=== PATIENT | male | born 1940 | race Caucasian/White ===

== ENCOUNTER 2018-09-11 12:16 | Inpatient (IN) | payer MEDICARE ==
[~2018-09-11] VITALS: Ht 177.8 cm; Wt 74.0 kg
[2018-09-11] MEDS ORDERED: OMEP-110 PO (12:31)
[2018-09-11] MEDS ORDERED: SENN1TAB67 PO (12:31)
[2018-09-11] MEDS ORDERED: ASPIRIN 81 MG TABLET CHEW ONE (12:41)
[2018-09-11 12:49] LABS: BASOPHILS # (AUTO) 0.06 x10^3/uL (0-0.1); BASOPHILS % (AUTO) 1 % (0-1); EOSINOPHILS % (AUTO) 1 % (1-7); LYMPHOCYTES # (AUTO) 1.15 x10^3/uL (1-3.4); LYMPHOCYTES % (AUTO) 13 % (22-44); MD NO; MEAN CORPUSCULAR HEMOGLOBIN 34.7 pg (27.5-34.5); MEAN CORPUSCULAR HGB CONC 34.2 g/dL (33.2-36.2); MEAN CORPUSCULAR VOLUME 101.7 fL (81-97); MEAN PLATELET VOLUME 7.1 fL (7.4-10.4); MONOCYTES # (AUTO) 0.81 x10^3/uL (0.2-0.8); MONOCYTES % (AUTO) 9 % (2-9); NEUTROPHILS # (AUTO) 6.61 x10^3/uL (1.8-6.8); NEUTROPHILS % (AUTO) 76 % (42-75); PLATELET COUNT 239 x10^3/uL (130-400); RED BLOOD COUNT 4.42 x10^6/uL (4.38-5.82); RED CELL DISTRIBUTION WIDTH 13.3 % (9.4-14.8)
[2018-09-11 13:00] LABS: ANION GAP 5 mmol/L (5-15); CALCIUM 8.6 mg/dL (8.5-10.1); CHLORIDE 111 mmol/L (98-107); CREATININE 1.07 mg/dL (0.7-1.3)
[2018-09-11] MEDS ORDERED: ASPIRIN 81 MG TABLET CHEW PO ONE (13:00)
[2018-09-11 13:01] LABS: ALBUMIN 3.2 g/dL (3.4-5.0)
[2018-09-11 13:04] LABS: TROPONIN I < 0.015 ng/mL (0.000-0.045)
[2018-09-11] MEDS ORDERED: NITROGLYCERIN OINT 2%, 1GM TP ONE ×2 (13:30→13:40)
[2018-09-11] MEDS ORDERED: FUROSEMIDE 40 MG/4 ML IV ONE (13:30)
[2018-09-11] MEDS ORDERED: FUROSEMIDE 40 MG/4 ML ONE (13:40)
[2018-09-11] MEDS ORDERED: CEFTRIAXONE 1,000 MG in SODIUM CHLORIDE 0.9% 50 ML IV SCH (15:00)
[2018-09-11] MEDS ORDERED: LABETALOL 5MG/ML, 20ML IVPush PRN (15:00)
[2018-09-11] MEDS ORDERED: methylPREDNISolone SOD SUCC 125 MG/2 ML IVPush SCH (15:00)
[2018-09-11] MEDS ORDERED: hydrALAzine 20 MG/ML, 1ML IVPush PRN (15:00)
[2018-09-11] MEDS ORDERED: ONDANSETRON 2MG/ML, 2ML IVPush PRN (15:00)
[2018-09-11] MEDS ORDERED: HEPARIN 25,000 UNITS/500ML PMX 500 ML IV PRN (15:30)
[2018-09-11] MEDS ORDERED: HEPARIN 5,000 UNITS/ML, 1ML IV ONE (15:30)
[2018-09-11] MEDS ORDERED: HEPARIN 5,000 UNITS/ML, 1ML IV PRN (15:30)
[2018-09-11] MEDS ORDERED: HEPARIN 5,000 UNITS/ML, 1ML ONE (15:41)
[2018-09-11] MEDS ORDERED: HEPARIN 25,000 UNITS/500ML PMX 500 ML ONE (15:42)
[2018-09-11] MEDS ORDERED: ALBUTEROL SULFATE 2.5 MG/3 ML ONE (15:44)
[2018-09-11 15:46] LABS: TROPONIN I < 0.015 ng/mL (0.000-0.045)
[2018-09-11 16:10] LABS: MICROSCOPIC NOT IND
[2018-09-11] MEDS: DOXYCYCLINE 100MG TABLET PO SCH ×2 (16:19→21:48)
[2018-09-11 16:30] VITALS: BP 160/81
[2018-09-11] MEDS ORDERED: CEFTRIAXONE PMX 1GM/50ML 50 ML IV SCH (17:00)
[2018-09-11] MEDS: FUROSEMIDE 20 MG/2 ML IV SCH (17:19)
[2018-09-11] MEDS: methylPREDNISolone SOD SUCC 125 MG/2 ML IVPush SCH (17:20)
[2018-09-11] MEDS ORDERED: GUAI-103 PO (17:25)
[2018-09-11] MEDS ORDERED: NyQuil PO (17:25)
[2018-09-11] MEDS ORDERED: [UNRECOGNIZED DRUG - CODE] PO (17:25)
[2018-09-11 20:25] VITALS: BP 144/74
[2018-09-11 20:43] LABS: TROPONIN I < 0.015 ng/mL (0.000-0.045)
[2018-09-11] MEDS ORDERED: SENNA/DOCUSATE TABLET PO SCH (21:00)
[2018-09-11] MEDS ORDERED: ACETAMINOPHEN 325 MG TABLET ONE (22:09)
[2018-09-11] MEDS: ACETAMINOPHEN 325 MG TABLET PO PRN (22:15)
[2018-09-12] MEDS: methylPREDNISolone SOD SUCC 125 MG/2 ML IVPush SCH ×2 (01:50→09:08)
[2018-09-12] MEDS: ACETAMINOPHEN 325 MG TABLET PO PRN (02:14)
[2018-09-12 02:15] VITALS: BP 117/77
[2018-09-12 05:09] LABS: BASOPHILS # (AUTO) 0.03 x10^3/uL (0-0.1); BASOPHILS % (AUTO) 0 % (0-1); EOSINOPHILS % (AUTO) 0 % (1-7); LYMPHOCYTES # (AUTO) 0.65 x10^3/uL (1-3.4); LYMPHOCYTES % (AUTO) 8 % (22-44); MD NO; MEAN CORPUSCULAR HEMOGLOBIN 34.6 pg (27.5-34.5); MEAN CORPUSCULAR HGB CONC 34.5 g/dL (33.2-36.2); MEAN CORPUSCULAR VOLUME 100.4 fL (81-97); MEAN PLATELET VOLUME 7.3 fL (7.4-10.4); MONOCYTES # (AUTO) 0.13 x10^3/uL (0.2-0.8); MONOCYTES % (AUTO) 2 % (2-9); NEUTROPHILS # (AUTO) 7.84 x10^3/uL (1.8-6.8); NEUTROPHILS % (AUTO) 91 % (42-75); PLATELET COUNT 259 x10^3/uL (130-400); RED BLOOD COUNT 4.55 x10^6/uL (4.38-5.82); RED CELL DISTRIBUTION WIDTH 13.1 % (9.4-14.8)
[2018-09-12 05:19] LABS: ANION GAP 9 mmol/L (5-15); CALCIUM 8.7 mg/dL (8.5-10.1); CHLORIDE 105 mmol/L (98-107); CREATININE 1.13 mg/dL (0.7-1.3)
[2018-09-12] MEDS: FUROSEMIDE 20 MG/2 ML IV SCH (05:49)
[2018-09-12 06:42] VITALS: BP 128/84
[2018-09-12] MEDS ORDERED: OMEPRAZOLE 20 MG CAPSULE.DR PO SCH (09:00)
[2018-09-12] MEDS ORDERED: FLUTICASONE/VILANTEROL 200-25MCG/INH INH SCH (09:00)
[2018-09-12] MEDS: DOXYCYCLINE 100MG TABLET PO SCH (09:08)
[2018-09-12] MEDS ORDERED: DOXY100T PO (14:08)
[2018-09-12] MEDS ORDERED: FLUT1BLS INH (14:12)
[2018-09-12] MEDS ORDERED: GUAI600T31 PO (14:12)
[2018-09-12] MEDS ORDERED: RIVA20TA PO (14:12)
[2018-09-12] MEDS ORDERED: RIVA15TA PO (14:12)
[2018-09-12] MEDS ORDERED: CEFD300C37 PO (14:12)
[2018-09-12 14:28] VITALS: BP 103/64
[2018-09-12] MEDS ORDERED: RIVAROXABAN 15 MG TABLET PO SCH ×3 (14:46→17:00)
== END 2018-09-12 16:34 | disposition home or self-care (01) | DRG 291 ==
LOC: ED 13:50 → EDIP 13:51 → ED 14:52 → 5SO 16:43
PROVIDERS: ADMIT Hospitalist; ATTEND Hospitalist
DX: I50.31 Acute diastolic (congestive) heart failure (principal); J96.01 Acute respiratory failure with hypoxia; Z23 Encounter for immunization
CPT/HCPCS: 36415; 71046; 71275; 80048; 81003; 82040; 83735; 83880; 84100; 84443; 84484; 85025; 85379; 85520; 87040; 90656; 93005; 93306; 94640; 96374; 96375; G0378; J0696; J1644; J1940; J2930

== ENCOUNTER 2019-10-26 11:53 | Outpatient (CLI) | payer MEDICARE ==
[~2019-10-26 11:53] MED LIST: CEFD300C37 PO; DOXY100T PO; FLUT1BLS INH; GUAI-103 PO; GUAI600T31 PO; NyQuil PO; OMEP-110 PO; RIVA15TA PO; RIVA20TA PO; SENN1TAB67 PO; [UNRECOGNIZED DRUG - CODE] PO
[2019-10-26] MEDS ORDERED: OMNIPAQUE 350 MG/ML, 100ML BOTTLE ONE (12:30)
== END 2019-10-26 23:59 | disposition home or self-care (01) ==
LOC: RAD 11:53
PROVIDERS: ATTEND Nurse Practitioner Family
DX: J43.9 Emphysema, unspecified (principal); I26.99 Other pulmonary embolism without acute cor pulmonale; J84.10 Pulmonary fibrosis, unspecified
CPT/HCPCS: 71275; Q9967

== ENCOUNTER 2020-12-20 10:31 | Inpatient (IN) | payer MEDICARE ==
[~2020-12-20] VITALS: Ht 182.9 cm; Wt 68.1 kg
--- NOTE | 2020-12-20 10:57 | NUR ---
BIB [facility], PT WITH C/O INCREASING SOB X2 WEEKS, HX PULM FIBROSIS ON BASELINE 2L AT HOME, EMS INCREASED PT TO 3L AND PT RECOVERED WITH SOB SYMPTOMS, PT ARRIVES ON BASELINE 2L. PT WITH DRY COUGH, DENIES SICK CONTACTS, HE LIVES AT HOME ALONE. ERP IN TO EVAL PT. PT TO ALL MONTIORS AT THIS TIME
[2020-12-20] MEDS ORDERED: SODIUM CHLORIDE FLUSH 10ML SYR IVF ONE (11:00)
[2020-12-20 11:15] LABS: BASOPHILS % (AUTO) 1 % (0-1); EOSINOPHILS % (AUTO) 0 % (1-7); LYMPHOCYTES % (AUTO) 10 % (22-44); MEAN CORPUSCULAR HEMOGLOBIN 34.4 pg (27.5-34.5); MEAN CORPUSCULAR HGB CONC 34.6 g/dL (33.2-36.2); MEAN PLATELET VOLUME 7.9 fL (7.4-10.4); MONOCYTES % (AUTO) 9 % (2-9); NEUTROPHILS % (AUTO) 80 % (42-75); PLATELET COUNT 169 x10^3/uL (130-400); RED BLOOD COUNT 4.61 x10^6/uL (4.38-5.82); RED CELL DISTRIBUTION WIDTH 13.8 % (9.4-14.8)
[2020-12-20 11:23] LABS: MD NO
[2020-12-20 11:25] LABS: ALBUMIN 3.5 g/dL (3.4-5.0); ANION GAP 4 mmol/L (5-15); CALCIUM 9.1 mg/dL (8.5-10.1); CHLORIDE 109 mmol/L (98-107)
[2020-12-20 11:31] LABS: ALKALINE PHOSPHATASE 95 U/L (45-117); BILIRUBIN,TOTAL 0.8 mg/dL (0.2-1.0); CREATININE 1.28 mg/dL (0.7-1.3); TOTAL PROTEIN 7.1 g/dL (6.4-8.2)
[2020-12-20 11:37] LABS: ALANINE AMINOTRANSFERASE 21 U/L (12-78); TROPONIN I 0.226 ng/mL (0.000-0.045)
[2020-12-20] MEDS ORDERED: ASPIRIN 81 MG TABLET CHEW ONE (11:52)
[2020-12-20] MEDS ORDERED: ASPIRIN 81 MG TABLET CHEW PO ONE (12:00)
[2020-12-20] MEDS ORDERED: ONDANSETRON 2MG/ML, 2ML IVPush PRN (13:30)
[2020-12-20] MEDS ORDERED: LABETALOL 5MG/ML, 20ML IVPush PRN (13:30)
[2020-12-20] MEDS ORDERED: BISACODYL 10 MG SUPP PR PRN (13:30)
[2020-12-20] MEDS ORDERED: ENALAPRILAT 1.25 MG/ML, 2ML IVPush PRN (13:30)
[2020-12-20] MEDS ORDERED: MELATONIN 5 MG TABLET PO PRN (13:30)
[2020-12-20] MEDS ORDERED: POLYETHYLENE GLYCOL 17 GM PACKET PO PRN (13:30)
[2020-12-20] MEDS ORDERED: ONDANSETRON ODT 4 MG PO PRN (13:30)
[2020-12-20] MEDS ORDERED: ACETAMINOPHEN 325 MG TABLET PO PRN (13:30)
[2020-12-20] MEDS ORDERED: NITROGLYCERIN 0.4 MG BOTTLE (25 TABS) SL PRN (13:30)
[2020-12-20] MEDS ORDERED: OMNIPAQUE 350 MG/ML, 100ML BOTTLE ONE (13:55)
--- NOTE | 2020-12-20 14:05 | NUR ---
TASK RN: CARDIAC DIET TRAY ORDERED FOR PT
--- NOTE | 2020-12-20 14:53 | NUR ---
ADMITTING MD CALLED TO CLARIFY [facility] GTT ORDER, WILL ORDER WT BASED PER ADMITTING. AWAITING 10A TO BEGIN GTT. VSS, NAD NOTED
[2020-12-20] MEDS ORDERED: HEPARIN 5,000 UNITS/ML, 1ML ONE (15:10)
[2020-12-20] MEDS ORDERED: HEPARIN 25,000 UNITS/250ML PMX 250 ML ONE (15:11)
[2020-12-20] MEDS ORDERED: HEPARIN 25,000 UNITS/250ML PMX 250 ML IV PRN (15:30)
[2020-12-20] MEDS ORDERED: HEPARIN 5,000 UNITS/ML, 1ML IV ONE (15:30)
[2020-12-20] MEDS ORDERED: HEPARIN 5,000 UNITS/ML, 1ML IV PRN (15:30)
--- NOTE | 2020-12-20 15:34 | NUR ---
[facility] GTT STARTED PER PROTOCOL, PT GIVEN MEAL TRAY. CALL LIGHT IN REACH, NAD NOTED
[2020-12-20] MEDS ORDERED: LOSA25TA25 PO (15:39)
[2020-12-20 17:45] LABS: TROPONIN I 0.194 ng/mL (0.000-0.045)
--- NOTE | 2020-12-20 18:05 | NUR ---
REPOSITIONED PT IN [facility], BELONGINGS BAGGED IN RM, HOSPITAL BED ORDERED. NAD NOTED
--- NOTE | 2020-12-20 18:44 | NUR ---
REPORT GIVEN TO RECIEVING RN, AWAITING TRANSPORT.
[2020-12-20 20:00] VITALS: BP 164/106
[2020-12-20] MEDS: GUAIFENESIN ER 600 MG TABLET PO SCH (20:23)
[2020-12-20 22:01] LABS: TROPONIN I 0.185 ng/mL (0.000-0.045)
[2020-12-21 00:33] VITALS: BP 159/99
[2020-12-21 04:06] LABS: BASOPHILS % (AUTO) 1 % (0-1); EOSINOPHILS % (AUTO) 2 % (1-7); LYMPHOCYTES % (AUTO) 16 % (22-44); MEAN CORPUSCULAR HEMOGLOBIN 34.2 pg (27.5-34.5); MEAN CORPUSCULAR HGB CONC 34.7 g/dL (33.2-36.2); MEAN PLATELET VOLUME 7.8 fL (7.4-10.4); MONOCYTES % (AUTO) 10 % (2-9); NEUTROPHILS % (AUTO) 71 % (42-75); PLATELET COUNT 143 x10^3/uL (130-400); RED BLOOD COUNT 4.49 x10^6/uL (4.38-5.82); RED CELL DISTRIBUTION WIDTH 13.5 % (9.4-14.8)
[2020-12-21 04:08] LABS: MD NO
[2020-12-21 04:17] LABS: ANION GAP 5 mmol/L (5-15); CALCIUM 8.3 mg/dL (8.5-10.1); CHLORIDE 109 mmol/L (98-107); CHOLESTEROL, TOTAL 202 mg/dL (140-239); TRIGLYCERIDES 85 mg/dL (50-200); VLDL CHOLESTEROL 17 mg/dL (0-25)
[2020-12-21 04:19] LABS: CHOL/HDL RATIO 4.1; HDL CHOL % 24 % (26-37); HDL CHOLESTEROL (DIRECT) 49 mg/dL (40-60); LDL CHOLESTEROL,CALCULATED 136 mg/dL (54-169); LDL/HDL RATIO 2.8 (0.5-3.0)
[2020-12-21 07:02] VITALS: BP 151/100
[2020-12-21] MEDS: FLUTICASONE/VILANTEROL 200-25MCG/INH INH SCH (09:00)
[2020-12-21] MEDS: GUAIFENESIN ER 600 MG TABLET PO SCH ×2 (09:42→20:15)
[2020-12-21] MEDS: SENNA/DOCUSATE TABLET PO SCH (09:42)
[2020-12-21] MEDS: OMEPRAZOLE 20 MG CAPSULE.DR PO SCH (09:43)
[2020-12-21] MEDS: LOSARTAN 50MG TABLET PO SCH (09:43)
[2020-12-21] MEDS ORDERED: APIXABAN 5 MG TABLET PO SCH (11:30)
[2020-12-21 11:53] VITALS: BP 137/80
[2020-12-21 12:12] VITALS: BP 137/80
[2020-12-21 19:46] VITALS: BP 158/82
[2020-12-21] MEDS: APIXABAN 5 MG TABLET PO SCH (20:16)
[2020-12-22 01:29] VITALS: BP 138/81
[2020-12-22 08:15] VITALS: BP 153/72
[2020-12-22] MEDS: FLUTICASONE/VILANTEROL 200-25MCG/INH INH SCH (08:57)
[2020-12-22] MEDS: SENNA/DOCUSATE TABLET PO SCH (08:59)
[2020-12-22] MEDS: GUAIFENESIN ER 600 MG TABLET PO SCH ×2 (08:59→21:33)
[2020-12-22] MEDS: OMEPRAZOLE 20 MG CAPSULE.DR PO SCH (09:00)
[2020-12-22] MEDS: CARVEDILOL 3.125 MG TABLET PO SCH ×2 (09:00→18:21)
[2020-12-22] MEDS: APIXABAN 5 MG TABLET PO SCH ×2 (09:00→21:33)
[2020-12-22] MEDS: LOSARTAN 50MG TABLET PO SCH (09:01)
[2020-12-22 13:01] VITALS: BP_SYST 88
[2020-12-22 20:01] VITALS: BP 147/90
[2020-12-22] MEDS: ATORVASTATIN 20 MG TABLET PO SCH (21:33)
[2020-12-23 01:44] VITALS: BP 137/82
[2020-12-23] MEDS: CARVEDILOL 3.125 MG TABLET PO SCH ×2 (05:15→17:40)
[2020-12-23 06:38] VITALS: BP 144/84
[2020-12-23] MEDS: FLUTICASONE/VILANTEROL 200-25MCG/INH INH SCH (09:24)
[2020-12-23] MEDS: LOSARTAN 50MG TABLET PO SCH (09:24)
[2020-12-23] MEDS: OMEPRAZOLE 20 MG CAPSULE.DR PO SCH (09:24)
[2020-12-23] MEDS: APIXABAN 5 MG TABLET PO SCH ×2 (09:25→20:24)
[2020-12-23] MEDS: GUAIFENESIN ER 600 MG TABLET PO SCH ×2 (09:25→20:23)
[2020-12-23] MEDS: SENNA/DOCUSATE TABLET PO SCH (09:25)
[2020-12-23 13:22] VITALS: BP 127/79
[2020-12-23 17:41] VITALS: BP 133/79
[2020-12-23 18:53] VITALS: BP 134/80
[2020-12-23] MEDS: ATORVASTATIN 20 MG TABLET PO SCH (20:24)
[2020-12-24 01:02] VITALS: BP 125/82
[2020-12-24] MEDS: CARVEDILOL 3.125 MG TABLET PO SCH ×2 (05:24→18:03)
[2020-12-24 07:04] VITALS: BP 152/87
[2020-12-24] MEDS: FLUTICASONE/VILANTEROL 200-25MCG/INH INH SCH (09:32)
[2020-12-24] MEDS: OMEPRAZOLE 20 MG CAPSULE.DR PO SCH (09:33)
[2020-12-24] MEDS: LOSARTAN 50MG TABLET PO SCH (09:33)
[2020-12-24] MEDS: GUAIFENESIN ER 600 MG TABLET PO SCH ×2 (09:33→20:26)
[2020-12-24] MEDS: APIXABAN 5 MG TABLET PO SCH ×2 (09:33→20:25)
[2020-12-24] MEDS: SENNA/DOCUSATE TABLET PO SCH (09:34)
[2020-12-24 12:08] VITALS: BP 143/82
[2020-12-24 18:41] VITALS: BP 102/64
[2020-12-24] MEDS: ATORVASTATIN 20 MG TABLET PO SCH (20:26)
[2020-12-25 02:14] VITALS: BP 111/71
[2020-12-25] MEDS: CARVEDILOL 3.125 MG TABLET PO SCH (05:33)
[2020-12-25 07:12] VITALS: BP 127/81
[2020-12-25] MEDS: SENNA/DOCUSATE TABLET PO SCH (08:51)
[2020-12-25] MEDS: APIXABAN 5 MG TABLET PO SCH (08:52)
[2020-12-25] MEDS: OMEPRAZOLE 20 MG CAPSULE.DR PO SCH (08:52)
[2020-12-25] MEDS: LOSARTAN 50MG TABLET PO SCH (08:53)
[2020-12-25] MEDS: FLUTICASONE/VILANTEROL 200-25MCG/INH INH SCH (08:54)
[2020-12-25] MEDS: GUAIFENESIN ER 600 MG TABLET PO SCH (08:54)
[2020-12-25] MEDS ORDERED: TAMSULOSIN 0.4 MG CAP.ER.24H PO SCH (09:00)
[2020-12-25 12:04] VITALS: BP 119/69
[2020-12-25] MEDS ORDERED: CARV3.1212 PO (14:27)
[2020-12-25] MEDS ORDERED: BISA10SU4 PR (14:27)
[2020-12-25] MEDS ORDERED: LOSA50TA14 PO (14:27)
[2020-12-25] MEDS ORDERED: TAMS-11 PO (14:27)
[2020-12-25] MEDS ORDERED: ATOR20TA37 PO (14:27)
[2020-12-25] MEDS ORDERED: ACET325T26 PO (14:27)
[2020-12-25] MEDS ORDERED: APIX5TAB PO (14:27)
== END 2020-12-25 16:35 | DRG 175 ==
LOC: ED 12:11 → EDIP 13:07 → 4EST 19:05 → 4WST 12-21 21:49
PROVIDERS: ADMIT Internal Medicine; ATTEND Internal Medicine
DX: I26.99 Other pulmonary embolism without acute cor pulmonale (principal); J96.21 Acute and chronic respiratory failure with hypoxia; I24.8 Other forms of acute ischemic heart disease; I50.20 Unspecified systolic (congestive) heart failure; F03.90 Unspecified dementia, unspecified severity, without behavioral disturbance, psychotic disturbance, mood disturbance, and anxiety; I11.0 Hypertensive heart disease with heart failure; I35.0 Nonrheumatic aortic (valve) stenosis; I44.0 Atrioventricular block, first degree; I48.0 Paroxysmal atrial fibrillation; J44.9 Chronic obstructive pulmonary disease, unspecified; Z66 Do not resuscitate; N40.1 Benign prostatic hyperplasia with lower urinary tract symptoms; K59.09 Other constipation; J84.10 Pulmonary fibrosis, unspecified; I73.9 Peripheral vascular disease, unspecified; Z88.0 Allergy status to penicillin; Z99.81 Dependence on supplemental oxygen; Z86.718 Personal history of other venous thrombosis and embolism; Z86.711 Personal history of pulmonary embolism; Z85.828 Personal history of other malignant neoplasm of skin; Z82.5 Family history of asthma and other chronic lower respiratory diseases; Z82.49 Family history of ischemic heart disease and other diseases of the circulatory system; Z79.01 Long term (current) use of anticoagulants; Z88.5 Allergy status to narcotic agent
CPT/HCPCS: 36415; 71045; 71275; 80048; 80053; 80061; 82962; 83880; 84484; 85025; 85379; 85520; 93005; 93306; 99291; G0378; J1644; Q9967; U0003

== ENCOUNTER → 2021-03-07 | Outpatient (CLI) | payer MEDICARE ==
[~2021-03-07] MED LIST changes: +ACET325T26 PO; +AMINOPHYLLINE 25 MG/ML, 10ML ONE; +APIX5TAB PO; +ATOR20TA37 PO; +BISA10SU4 PR; +CARV3.1212 PO; +LOSA25TA25 PO; +LOSA50TA14 PO; +REGADENOSON 0.4 MG/5 ML SYRINGE ONE; +TAMS-11 PO
== END | disposition home or self-care (01) ==
LOC: CFH 07:14
PROVIDERS: ATTEND Internal Medicine Cardiovascular Disease
DX: I48.0 Paroxysmal atrial fibrillation (principal); I42.9 Cardiomyopathy, unspecified
CPT/HCPCS: 78452; 93017; A9502; J0280; J2785